=== PATIENT | male | born 1985 | race Caucasian/White ===

== ENCOUNTER 2017-12-16 08:33 | Inpatient (IN) ==
[2017-12-16] MEDS ORDERED: Dexmedetomidine Inj 200 MCG/2 ML Vial ONE (08:42)
[2017-12-16] MEDS ORDERED: HYDROmorphone PF Inj 2 MG/ML Vial ONE (08:42)
[2017-12-16] MEDS ORDERED: Post-op Orders (for Pharmacy) OTHER STA (10:51)
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
--- NOTE | 2017-12-16 11:09 | P.OP ---
- Preoperative Diagnosis (1) Brachial artery laceration (2) Dislocation of elbow, left, closed Date of procedure: 12/16/17 Procedure: Open reduction left elbow dislocation, primary repair of lateral ulnar collateral ligament, primary repair of ulnar collateral ligament, external fixation left elbow Anesthesia: DEN Surgeon: José Odom MD Leader Assembler: TIFFANY Betts PA-C The surgical procedure was assisted by my physician scheduling assistant. My P.A. presence was necessary throughout this case for the manipulation and positioning of the surgical extremity. My P.A. was assisting me throughout the duration of this procedure. The skill set of a physician scheduling assistant was medically necessary to complete this procedure. During the surgical case the certified surgical technician was working at the back table and the physician scheduling assistant was directly assisting me. Operation and Findings: Juan had a recurrent left elbow dislocation. Patient was seen and evaluated preoperatively. Informed consent was obtained preoperatively. Operative site was marked. The risk and benefits of surgery were discussed in depth with patient. All questions were answered. He was taken to the operating room urgently because of prior brachial artery injury. He was given IV sedation and general anesthesia. He received IV antibiotics. He was placed in lateral decubitus position. Left arm was prepped with alcohol followed Hibiclens and draped in usual sterile fashion. Timeout procedure was performed. Procedure began with a 3 inch incision over the lateral joint line. Subcutaneous tissue was dissected with Bovie. The joint was visualized. The lateral ulnar collateral ligament complex was completely avulsed. The elbow was gently manipulated. The elbow was reduced. The elbow was placed through range of motion appeared to be very unstable. Both the medial and lateral ligaments appeared to be disrupted. A second 3 inch incision was made over the medial joint line. Subcutaneous tissue was dissected with Bovie. Ulnar nerve was identified and protected throughout the procedure. The ulnar collateral ligament complex was identified. This was avulsed off the distal humerus. At this point the elbow was manipulated. The elbow was concentrically reduced. A Steinmann pin was used to pin the olecranon to the humerus and a concentrically reduced position at 90. At this point attention was turned to external fixation. A 3 inch incision was made over the distal humeral shaft. The distal humerus was exposed. The radial nerve was visualized and protected. Pin sites were predrilled. 2 pins were placed in the distal humerus. Fluoroscopy confirmed appropriate pin placement. At this point attention was turned towards the lateral ulnar collateral ligament complex. A 3.2 mm drill hole was made at the origin of the ligament complex. Using the Arthrex anchor system, the drill hole was tapped. A 5.5 mm Arthrex bioabsorbable anchor was now placed. Using the attached #2 suture, the lateral ulnar collateral ligament complex was repaired back to the origin of the distal humerus. The ligament repair was stable. Next, attention was turned towards the ulnar collateral ligament complex. The ulnar nerve is protected. A 3.2 mm drill hole was made at the origin of the ligament complex. Using the Arthrex anchor system, the drill hole was tapped. A 5.5 mm Arthrex bioabsorbable anchor was now placed. Using the attached #2 suture, the ulnar collateral ligament complex was repaired back to the origin of the distal humerus. The ligament repair was stable. At this point attention was turned to external fixation. Bars and clamps were applied to the pins. External fixator construct was created to hold the elbow at 90. External fixator was now tightened. The Steinmann pin was now removed from the elbow joint. Fluoroscopy confirmed concentric reduction of the elbow joint. The incisions were not closed with 3-0 PDS, 3-0 nylon, and vince. Sterile dressings were applied. Patient's hand was warm and well-perfused. Needle sponge counts were correct.
[2017-12-16] MEDS ORDERED: fentaNYL Citrate Inj 100 MCG/2 ML Ampul ONE ×2 (11:10)
[2017-12-16] MEDS ORDERED: *Meperidine Inj 25 MG/ML Vial PERIprocedural Use ONLY ONE (11:15)
--- NOTE | 2017-12-16 11:20 | XR ---
EXAM DATE: 12/16/2017 11:16 AM EDT AGE/SEX: 32 years / Male INDICATIONS: Left elbow ex-fix. CLINICAL DATA: This is the patient's initial encounter. Patient reports that signs and symptoms have been present for 1 day and indicates a pain score of Nonresponsive. MEDICAL/SURGICAL HISTORY: Non-responsive. Non-responsive. COMPARISON: No prior exams available for comparison. FINDINGS: 2 spot intraoperative fluoroscopic views of the left elbow in the frontal and lateral projections dem onstrate a small olecranon enthesophyte, and external fixation pins traversing the distal humerus and proximal ulnar shaft. CONCLUSION: Postoperative changes are Electronically signed by: Karl Perales MD 12/16/2017 11:19 AM EDT
[2017-12-16] MEDS ORDERED: Metoprolol Tartrate 25 MG Tablet PO SCH (11:30)
[2017-12-16] MEDS ORDERED: Chlorhexidine Gluconate 2% 1 Pack (2 Cloths) TOPICAL SCH (11:30)
[2017-12-16] MEDS ORDERED: Neostigmine Inj 5 MG/5 ML Syringe IV.PUSH ONE (11:46)
[2017-12-16] MEDS ORDERED: Lidocaine PF 1% Inj 5 ML Syringe INFILTRATN ONE (11:46)
[2017-12-16] MEDS ORDERED: Glycopyrrolate Inj 1 MG/5 ML Syringe IV.PUSH ONE (11:46)
[2017-12-16] MEDS ORDERED: Sodium Chlor 0.9% Inj 500 ML IV.SIG SCH (12:00)
[2017-12-16] MEDS ORDERED: *morphine SULFATE 10 MG/ML PERIprocedure ONLY ONE (12:11)
--- NOTE | 2017-12-16 13:10 | CT ---
EXAM DATE: 12/16/2017 12:15 PM EDT AGE/SEX: 32 years / Male INDICATIONS: Follow up left brachial artery repair four days ago. CLINICAL DATA: This is the patient's initial encounter. Patient reports that signs and symptoms have been present for 4 - 6 days and indicates a pain score of 8/10. MEDICAL/SURGICAL HISTORY: None. . Brachial artery. External fixation left arm. RADIATION DOSE: 13.60 CTDI (mGy) COMPARISON: No prior exams available for comparison. EXTERNAL: [facility] TECHNIQUE: Volumetric scanning was performed using a multi-row detector CT scanner during bolus infu aletha of 85 ml Omnipaque 350 (iohexol) nonionic water-soluble contrast as a single exam dose. The da ta was post processed with a variety of visualization algorithms including full volume maximum intens ity projection, multi-planar sliding thin slab reformation, curved planar reformation, and surface re ndering techniques. Using automated exposure control and adjustment of the mA and/or kV according to patient size, radiation dose was kept as low as reasonably achievable to obtain optimal diagnostic q uality images. DICOM format image data is available electronically for review and comparison. FINDINGS: The aortic arch is normal in appearance. The arch vessels are widely patent. Looking into the left ar m, the subclavian artery is widely patent. The axillary artery is widely patent. A vein bypass is see n involving the distal brachial artery. Toward the proximal end of the graft, there is significant ar tifact associated with the patient's external fixator. This causes significant obscurity of the vesse l enhancement on the reconstructions, however the vessel appears to be patent on the source axial jenniffer ges. Distally, anastomosis appears widely patent. The forearm vessels are intact and unremarkable wit h a dominant radial vessel into the hand. CONCLUSION: Probably satisfactory appearance of left brachial bypass. Near the proximal end of the bypass, the en hancement of the vessel is significantly obscured by streak artifact from external fixator. The appea del is elsewhere satisfactory. See above discussion. Electronically signed by: Wayne Merino MD 12/16/2017 1:09 PM EDT
[2017-12-16] MEDS ORDERED: TRANEXAMIC ACID IV.SIG ONE (16:00)
[2017-12-16] MEDS ORDERED: SODIUM CHLOR 0.9% IV.SIG ONE (16:00)
[2017-12-16] MEDS: Morphine Inj 4 MG/ML Vial IV.PUSH PRN ×2 (16:24→23:20)
[2017-12-16] MEDS: Folic Acid 1 MG Tablet PO SCH (17:50)
[2017-12-16 18:25] LABS: Hematocrit 31.3 % (39.0-51.0)
[2017-12-16] MEDS: ceFAZolin Inj 2,000 MG in Sodium Chlor 0.9% Inj 80 ML IV.SIG SCH (18:35)
[2017-12-16] MEDS: Vancomycin Inj 1,000 MG in Sodium Chlor 0.9% Inj 250 ML IV.SIG SCH (20:00)
[2017-12-16] MEDS: Senna/Docusate Sodium 8.6/50 MG Tablet PO SCH (20:00)
[2017-12-17] MEDS: ceFAZolin Inj 2,000 MG in Sodium Chlor 0.9% Inj 80 ML IV.SIG SCH ×3 (01:15→16:20)
[2017-12-17] MEDS: Morphine Inj 4 MG/ML Vial IV.PUSH PRN ×5 (01:57→22:08)
[2017-12-17 06:05] LABS: Hematocrit 26.6 % (39.0-51.0); Hemoglobin 9.1 gm/dL (13.0-17.0)
--- NOTE | 2017-12-17 06:26 | P.PNOP ---
Subjective Interval history: POD 1 s/p reduction of left elbow with ligament reconstruction and application of exfix significant pain overnight and reports significant bleeding. Physical Exam Vital signs: Vital Signs 12/16/17 08:58 12/16/17 11:00 12/16/17 11:15 Temperature 98.5 F 97.6 F Pulse Rate 90 79 87 Respiratory Rate 18 14 16 Blood Pressure 147/89 H 109/62 105/64 Pulse Oximetry 100 100 100 12/16/17 11:30 12/16/17 11:45 12/16/17 12:00 Temperature Pulse Rate 80 80 92 H Respiratory Rate 16 16 16 Blood Pressure 127/66 110/65 123/88 Pulse Oximetry 100 100 98 12/16/17 13:00 12/16/17 13:45 12/16/17 15:12 Temperature 98.1 F 97.5 F L Pulse Rate 99 H 86 104 H Respiratory Rate 16 16 18 Blood Pressure 124/88 116/80 135/81 Pulse Oximetry 100 97 99 12/16/17 20:00 12/17/17 00:00 Temperature 98.6 F 98.4 F Pulse Rate 124 H 140 H Respiratory Rate 18 18 Blood Pressure 147/82 H 138/80 Pulse Oximetry 99 100 Intake & Output 12/16/17 12/16/17 12/17/17 06:59 18:59 06:59 Intake Total 1111 / 1111 1580 / 1580 Output Total 200 / 200 Balance 911 / 911 1580 / 1580 Weight 72 kg Intake: IV 111 / 111 1100 / 1100 LR 1000 mL Inj 1,000 ML @ 80 1000 / 1000 mls/hr IV.CONT .[id number] [facility] Rx# :[id number] Cyklokapron Inj 1,100 MG In NS 111 / 111 Inj 100 ML @ 222 mls/hr IV.SIG ONCE ONE Rx#:[id number] Ancef Inj 2,000 MG In NS Inj 80 100 / 100 ML @ 200 mls/hr IV.SIG Q8H [facility] Rx#:[id number] Oral 480 / 480 Anesthesia Amount 1000 / 1000 Output: Estimated Blood Loss 200 / 200 Other: Weight On Admission 72 kg Narrative: LUE: +exfix. distal pin sites have significant bleeding and bandages surrounding are blood soaked. full sensation to median/ulnar nerve. patient able to move fingers freely. Results - Labs CBC & Chem 7: 12/17/17 04:23 Laboratory Results - last 24 hr 12/16/17 12/17/17 17:55 04:23 Hgb 11.0 L 9.1 L Hct 31.3 L 26.6 L - Imaging Impressions Elbow X-Ray 12/16/17 00:00 CONCLUSION: Postoperative changes are Upper Extremity CTA 12/16/17 10:54 CONCLUSION: Probably satisfactory appearance of left brachial bypass. Near the proximal end of the bypass, the enhancement of the vessel is significantly obscured by streak artifact from external fixator. The appearance is elsewhere satisfactory. See above discussion. Assessment and Plan - Problem List (1) Dislocation of elbow, left, closed Code(s): S53.105A - Unspecified dislocation of left ulnohumeral joint, initial encounter Status: Acute - Assessment and Plan 1) Left Elbow dislocation s/p ligament reconstruction and application of exfix - POD 1 -NWB -reinforce dressings -plan for dressing change tomorrow -start gabapentin 300mg 1po TID -pain control -elevate -patient lives in [place]. [place] planning to home once bleeding controlled. [place] ? Prescription Drug Monitoring Database has been queried and verified prior to prescribing the controlled substance. Acute pain exception. This patient has normal, predicted, physiological, and time limited response to an adverse mechanical stimulus associated with surgery, trauma, or acute illness as described in my notes. There is a lack of alternative treatment options other than to include the prescribed narcotic treatment for this condition.
[2017-12-17] MEDS ORDERED: SODIUM CHLOR 0.9% IV.SIG ONE (06:27)
[2017-12-17] MEDS ORDERED: TRANEXAMIC ACID IV.SIG ONE (06:27)
[2017-12-17] MEDS: Senna/Docusate Sodium 8.6/50 MG Tablet PO SCH ×2 (08:53→22:08)
[2017-12-17] MEDS: Gabapentin 300 MG Capsule PO SCH ×3 (08:53→17:21)
[2017-12-17] MEDS: Folic Acid 1 MG Tablet PO SCH (08:53)
[2017-12-17] MEDS: Vancomycin Inj 1,000 MG in Sodium Chlor 0.9% Inj 250 ML IV.SIG SCH (09:37)
[2017-12-18] MEDS: ceFAZolin Inj 2,000 MG in Sodium Chlor 0.9% Inj 80 ML IV.SIG SCH ×2 (00:52→08:35)
--- NOTE | 2017-12-18 06:38 | P.PNOP ---
Subjective Interval history: POD 2 s/p reduction of left elbow with ligament reconstruction and application of exfix doing better. states that pain is improving. reports that he is eager to go home Physical Exam Vital signs: Vital Signs 12/17/17 08:00 12/17/17 11:50 12/17/17 16:52 Temperature 97.8 F 97.4 F L 97.4 F L Pulse Rate 120 H 98 H 103 H Respiratory Rate 18 20 18 Blood Pressure 138/81 101/55 L 121/65 Pulse Oximetry 96 99 97 12/17/17 20:00 12/18/17 00:00 Temperature 97.5 F L 98.0 F Pulse Rate 109 H 113 H Respiratory Rate 18 17 Blood Pressure 164/74 H 158/73 H Pulse Oximetry 97 100 Intake & Output 12/17/17 12/17/17 12/18/17 06:59 18:59 06:59 Intake Total 1929 / 1929 2059 / 2059 200 / 200 Balance 1929 / 1929 2059 / 2059 200 / 200 Weight 72.3 kg Intake: IV 1450 / 1450 1100 / 1100 200 / 200 LR 1000 mL Inj 1,000 ML @ 80 1000 / 1000 1000 / 1000 mls/hr IV.CONT .[id number] [facility] Rx# :[id number] Vancomycin Inj 1,000 MG In NS 250 / 250 Inj 250 ML @ 200 mls/hr IV.SIG Q12H [facility] Rx#:[id number] Ancef Inj 2,000 MG In NS Inj 80 200 / 200 100 / 100 200 / 200 ML @ 200 mls/hr IV.SIG Q8H [facility] Rx#:[id number] Oral 480 / 480 960 / 960 Other: # Voids 2 Date of Last Bowel Movement 12/16/17 Narrative: LUE: noticable bloody drainage around distal pin sites. bandages removed. incisions clean and dry. mild drainage from distal pin site. nvi to median/ ulnar nerve. +wrist and finger extension Results - Labs CBC & Chem 7: 12/17/17 04:23 Assessment and Plan - Problem List (1) Dislocation of elbow, left, closed Code(s): S53.105A - Unspecified dislocation of left ulnohumeral joint, initial encounter Status: Acute - Assessment and Plan 1) Left Elbow dislocation s/p ligament reconstruction and application of exfix - POD 2 -NWB -reinforce dressings -dressing change today -gabapentin 300mg 1po TID -pain control -elevate -patient lives in [place]. [place] planning to home once bleeding controlled. -DC home today -f/u with ortho in [place] in 1-2 weeks -pin care BID E-FORCSE Prescription Drug Monitoring Database has been queried and verified prior to prescribing the controlled substance. Acute pain exception. This patient has normal, predicted, physiological, and time limited response to an adverse mechanical stimulus associated with surgery, trauma, or acute illness as described in my notes. There is a lack of alternative treatment options other than to include the prescribed narcotic treatment for this condition.
[2017-12-18] MEDS: Morphine Inj 4 MG/ML Vial IV.PUSH PRN (06:42)
--- NOTE | 2017-12-18 08:00 | P.DS ---
Date of admission: 12/16/17 14:48 Primary care physician: No Primary Care Physician Attending physician on discharge: José Odom Anticipated date of discharge: 12/18/17 Brief History from admission: Patient had previously undergone a left elbow dislocation with brachial artery rupture on December 11 for which she was admitted to [facility] and underwent a closed reduction of the elbow with the brachial artery repair. He was since discharged home. However, while home he states he felt his elbow pop and had immediate pain. He reported to the emergency department at [facility] where it was found that he had re- dislocated his elbow. Attempted reduction in the ER was attempted but unsuccessful. He was then transferred to [facility] for definitive care. DS: Diagnosis - Discharge Diagnosis (1) Dislocation of elbow, left, closed Status: Acute Diagnosis: Principal DS: Medications - Discharge Medications Prescriptions: gabapentin [Neurontin] 300 mg PO TID 14 Days #42 cap oxycodone-acetaminophen [Percocet] 1 tab PO Q4H #40 tab DS: Summary Hospital Course: Patient was taken to the operating room on December 16 for open reduction of the left elbow with ligament reconstruction and application of external fixator. He tolerated the procedure well. He was admitted to [facility]. Upon his admission 6 ., he had extreme pain and discomfort in his left elbow. He also had significant bleeding on postop day 0 and postop day 1. This bleeding was originating from the distal pin site. Dressings were reinforced and packed to help slow the bleeding. Gabapentin was started on postop day 1 to help manage his nerve pain. By postop day 2, his bleeding was well-controlled and his pain was also controlled. Dressing changes were initiated on postop day 2 and there was minimal bleeding of the distal pin sites. The incisions were clean and dry and intact. He will be discharged home today back to [place]. He will remain strictly nonweightbearing the left arm. He will be taught and shown how to perform pin care of the pin sites with peroxide and saline. He will do this twice a day. He will follow-up with orthopedist back home in approximately 2 weeks. - Time Spent with Patient Total time spent providing and/or coordinating discharge services: Less than 30 minutes - Quality: VTE Deep Vein Thrombosis/Pulmonary Embolism Present on Admission: No Exam Vital signs: Vital Signs 12/17/17 08:00 12/17/17 11:50 12/17/17 16:52 Temperature 97.8 F 97.4 F L 97.4 F L Pulse Rate 120 H 98 H 103 H Respiratory Rate 18 20 18 Blood Pressure 138/81 101/55 L 121/65 Pulse Oximetry 96 99 97 12/17/17 20:00 12/18/17 00:00 Temperature 97.5 F L 98.0 F Pulse Rate 109 H 113 H Respiratory Rate 18 17 Blood Pressure 164/74 H 158/73 H Pulse Oximetry 97 100 Intake & Output 12/17/17 12/18/17 12/18/17 18:59 06:59 18:59 Intake Total 2059 200 / 200 Balance 2059 200 / 200 Weight 72.3 kg Intake: IV 1100 / 1100 200 / 200 LR 1000 mL Inj 1,000 ML @ 80 1000 / 1000 mls/hr IV.CONT .[id number] DOMINIC Rx# :[id number] Ancef Inj 2,000 MG In NS Inj 80 100 / 100 200 / 200 ML @ 200 mls/hr IV.SIG Q8H DOMINIC Rx#:[id number] Oral 960 / 960 Other: # Voids 2 Date of Last Bowel Movement 12/16/17 Narrative: LUE: External fixator is in place. The distal pin site appears to show mild drainage. He has full sensation in median and ulnar nerve distribution fingers. The surgical incisions are clean and dry Results Procedures completed during hospitalization: Open reduction of left elbow dislocation with ligament reconstruction and application of external fixator - Impressions ITS Impressions Elbow X-Ray 12/16/17 00:00 CONCLUSION: Postoperative changes are Upper Extremity CTA 12/16/17 10:54 CONCLUSION: Probably satisfactory appearance of left brachial bypass. Near the proximal end of the bypass, the enhancement of the vessel is significantly obscured by streak artifact from external fixator. The appearance is elsewhere satisfactory. See above discussion. Discharge Plan - Discharge Disposition Patient Disposition: 01 Discharge Home - Discharge Condition Condition: Fair - Discharge Order Discharge Orders: Discharge Order (Routine); Ordered 12/18/17 Ordered By: Jamie Woodson - Physicians Team Primary Care Provider: Primary Care Keli,No Attending Provider: Jose Coleman Other Providers: José Odom MD - Rxs /Orders / Referrals /Forms Prescriptions: New gabapentin [Neurontin] 300 mg Capsule 300 mg PO TID 14 Days Qty: 42 RF: 0 oxycodone-acetaminophen [Percocet] 10-325 mg Tablet 1 tab PO Q4H Qty: 40 RF: 0 Continue alprazolam 0.25 mg Tablet 1 tab PO Q8HR PRN (Reason: Anxiety) aspirin [Adult Low Dose Aspirin] 81 mg Tablet,Delayed Release (Dr/Ec) 81 mg PO DAILY clopidogrel 75 mg Tablet 75 mg PO DAILY docusate sodium 100 mg Capsule 100 mg PO BID Discontinued hydrocodone-acetaminophen 5-325 mg Tablet 2 tab PO Q4-6H PRN (Reason: Pain) Referrals: Primary Care Stefanie Dickey [Primary Care Provider] - See Instructions (orthopedics in 2 weeks at home in [place]) - Discharge Instructions Patient Printed Instructions: ORIF of an Arm Fracture (DC) Additional Instructions: Patient has external fixation to Left arm .patient needs to keep pin sites clean. Daily.. They are to be cleaned with 1/2 normal saline and 1/2 peroxide solution. pins covered with Xeroform dressing, gauze and then wrapped with gauze and charleen wrapp. Patient needs to followup with orthopedic doctor in his home state for xrays and further surgery. RX for Percocet, Neurontin sent home with patient.
[2017-12-18] MEDS: Senna/Docusate Sodium 8.6/50 MG Tablet PO SCH (08:34)
[2017-12-18] MEDS: Gabapentin 300 MG Capsule PO SCH (08:34)
[2017-12-18] MEDS: Folic Acid 1 MG Tablet PO SCH (08:34)
== END 2017-12-18 11:47 | disposition home or self-care (01) ==
LOC: HSDC 08:33 → HSDI 14:48 → N06 15:11
PROVIDERS: ADMIT Orthopaedic Surgery; ATTEND Orthopaedic Surgery
PROC: ORIFELB (2017-12-16 08:57)